=== PATIENT | female | born 1955 | race Caucasian/White ===

== ENCOUNTER 2017-03-06 12:30 | Outpatient (CLI) | payer OTHER ==
--- NOTE | 2017-03-06 13:24 | RAD ---
THERE VIEWS LUMBAR SPINE: Date: 03-06-17 Comparison: None. History: Arthritis. FINDINGS: There is a mild degree of dextroscoliosis involving the lumbar spine. Five lumbar type vertebral bodi es are present with intact pedicles on frontal imaging. There is disc space narrowing, primarily left sided, at the L2-3 and L3-4 levels. There is sclerotic endplate change and osteophyte formation invo lving the lateral aspect of the L3-4 level. Lateral imaging demonstrates disc space narrowing at the L5-S1 level with anterior and posterior oste ophyte formation. There is lower lumbar spine facet hypertrophy. No displaced fracture is seen. IMPRESSION: Degenerative change with no fracture or evidence of dislocation. POS: [facility]
--- NOTE | 2017-03-06 13:25 | RAD ---
FOUR VIEWS OF THE LEFT KNEE: Date: 03-06-17 Comparison: None. History: Arthritis. FINDINGS: No knee joint effusion, fracture, or dislocation. Mild patellofemoral joint space narrowing. IMPRESSION: No acute osseous abnormality. POS: [facility]
== END 2017-03-06 12:31 | disposition home or self-care (01) ==
LOC: RAD 12:30
PROVIDERS: ATTEND Internal Medicine
DX: Z02.71 Encounter for disability determination (principal); S12.9XXA Fracture of neck, unspecified, initial encounter; M54.5 Low back pain; G58.9 Mononeuropathy, unspecified; M19.90 Unspecified osteoarthritis, unspecified site; M47.896 Other spondylosis, lumbar region
CPT/HCPCS: 72100

== ENCOUNTER 2017-06-04 17:38 | Outpatient (CLI) | payer OTHER | END 2017-06-04 17:39 | disposition home or self-care (01) | LOC: BICRAD 17:38 | PROVIDERS: ATTEND Family Medicine | DX: M54.2 Cervicalgia (principal); M47.892 Other spondylosis, cervical region; Z98.890 Other specified postprocedural states; Z98.1 Arthrodesis status | CPT/HCPCS: 72040 ==

== ENCOUNTER 2017-08-10 14:31 | Outpatient (CLI) | payer OTHER ==
--- NOTE | 2017-08-10 15:58 | MRI ---
MRI LUMBAR SPINE WITHOUT CONTRAST 08/10/17 HISTORY: Back pain, M54.16 - lumbar radiculopathy. COMPARISON: lumbar radiograph from 03/06/17. FINDINGS: Multiple T2 hyperintense foci of both kidneys. No hydronephrosis. Hepatic cysts are present. The sple en appears mildly enlarged. No retroperitoneal adenopathy. Aortic contour is nonaneurysmal. The background marrow signal is without infiltrative process. Modic type I end plate changes L3-4. Levels are as follows: T12-L1: Mild disc desiccation. No neural foraminal or spinal canal narrowing. L1-2: There is moderate circumferential disc space height loss. Disc osteophyte complex circumferenti ally is present. Mild facet arthropathy. No significant neural foraminal or spinal canal narrowing. L2-3: Moderate degenerative disc space height loss. There is end plate invagination of disc material inferior end plate of L2 and superior end plate of L3. There is a circumferential disc osteophyte com plex. Ligamentum flavum hypertrophy. The spinal canal is narrowed to approximately 5 mm. There is mod erate bilateral neural foraminal narrowing. L3-4: Moderate degenerative disc space height loss. Circumferential disc osteophyte complex. There ar e fusions within the facet joints bilaterally. Moderate to severe left and moderate right sided neura l foraminal narrowing. Mild ligamentum flavum hypertrophy. The spinal canal measures approximately 4 mm. L4-5: Circumferential disc bulge. Moderate disc arthrosis. Moderate bilateral neural foraminal narrow ing. L5-S1: there is central, right paracentral and subforaminal and lateral recess disc osteophyte comple x on the right. Moderate to severe right and moderate left sided facet arthrosis. Moderate to severe right neural foraminal narrowing. IMPRESSION: Multilevel spondylosis with neural foraminal and spinal canal narrowing as described above. POS: [facility]
== END 2017-08-10 14:32 | disposition home or self-care (01) ==
LOC: TBSIIMAG 14:31
PROVIDERS: ATTEND Neurological Surgery
DX: M47.26 Other spondylosis with radiculopathy, lumbar region (principal); M48.061 Spinal stenosis, lumbar region without neurogenic claudication; M99.83 Other biomechanical lesions of lumbar region
CPT/HCPCS: 72148

== ENCOUNTER 2017-11-15 13:52 | Outpatient (CLI) | payer OTHER | END 2017-11-15 13:53 | disposition home or self-care (01) | LOC: BICMAMMO 13:52 | PROVIDERS: ATTEND Family Medicine | DX: Z12.31 Encounter for screening mammogram for malignant neoplasm of breast (principal) | CPT/HCPCS: 77063; 77067 ==

== ENCOUNTER 2018-11-18 10:36 | Outpatient (CLI) | payer MEDICARE, OTHER ==
--- NOTE | 2018-11-18 14:04 | MMO ---
Bilateral MAMMO Bilat Screen [facility]. CLINICAL HISTORY: Patient is 63 years old and is seen for screening. The patient has the following family history of breast cancer: paternal aunt. The patient has no personal history of cancer. VIEWS: The views performed were: bilateral craniocaudal with tomosynthesis and bilateral mediolateral oblique with tomosynthesis. FILMS COMPARED: The present examination has been compared to prior imaging studies performed at 12/28/2015 and 11/15/2017. This study has been interpreted with the assistance of computer-aided detection. MAMMOGRAM FINDINGS: There are scattered fibroglandular densities. There are no suspicious masses, suspicious calcifications, or new areas of architectural distortion. IMPRESSION: THERE IS NO MAMMOGRAPHIC EVIDENCE OF MALIGNANCY. A ROUTINE FOLLOW-UP MAMMOGRAM IN 1 YEAR IS RECOMMENDED. THE RESULTS OF THIS EXAM WERE SENT TO THE PATIENT. ACR BI-RADS Category 1 - Negative MAMMOGRAPHY NOTE: 1. A negative mammogram report should not delay a biopsy if a dominant of clinically suspicious mass is present. 2. Approximately 10% to 15% of breast cancers are not detected by mammography. 3. Adenosis and dense breasts may obscure an underlying neoplasm. Reported by: MARIAN GAMING MD Electonically Signed: [id number]
== END 2018-11-18 10:37 | disposition home or self-care (01) ==
LOC: BICMAMMO 10:36
PROVIDERS: ATTEND Family Medicine
DX: Z12.31 Encounter for screening mammogram for malignant neoplasm of breast (principal); Z80.3 Family history of malignant neoplasm of breast
CPT/HCPCS: 77063; 77067

== ENCOUNTER 2019-03-13 07:43 | Outpatient (CLI) | payer MEDICARE ==
--- NOTE | 2019-03-13 10:16 | MRI ---
MRI CERVICAL SPINE WITHOUT CONTRAST: INDICATIONS: Neck pain and bilateral arm weakness. COMPARISON: No recent exams available. CORRELATION: MRI cervical spine from 11/04/2010. CT cervical spine from 12/07/2015. FINDINGS: The 2016 CT revealed prompt degenerative disk changes in the mid cervical spine at the C3-C4, C4-C5 a nd C5-C6 levels with prominent posterior spondylosis and cord impingement. Postoperative changes are now apparent at the C4-C5 and C5-C6 levels. There appears to be an anterior plate and screws present at these levels, which produces significant artifact on MRI. At C2-C3, minimal spondylosis without central canal or foraminal stenosis. At C3-C4, posterior disk bulge and spondylosis efface the anterior subarachnoid space. There is sligh t posterior listhesis. No significant cord impingement or compression. There is evidence of foraminal narrowing bilaterally due to facet and uncinate hypertrophy. The postoperative changes at C4-C5 are difficult to evaluate due to artifact. At C5 there appears to be posterior spondylosis impinging on the anterior cord. This is suboptimally evaluated due to artifact. At C5-C6 and C6-C7 posterior spondylosis efface the anterior subarachnoid space and appear to abut th e cord. Mild foraminal encroachment at C4-C5 on the left. The foramina at C5-C6 appear patent. C7-T1 appears unremarkable. Review of the cord reveals abnormal T2 signal within the cord at the C4 level. This is concerning for myelomalacia. There is mild thinning of the cord at this level, which would also correspond to volum e loss due to myelomalacia. IMPRESSION: 1. Postoperative changes with anterior plate and screws at C4-C5 and C5-C6 produce significant MRI ar tifact. Recommend additional evaluation with CT cervical spine, which can better assess the bony spon dylosis and delineate hardware. 2. There appears to be spondylosis impinging on the cord at the C5 and C5-C6 regions. 3. There is abnormal cord signal with thinning of the cord at C4, consistent with myelomalacia within the cord at this level. POS: [facility]
== END 2019-03-13 07:44 | disposition home or self-care (01) ==
LOC: TBSIIMAG 07:43
PROVIDERS: ATTEND Physical Medicine & Rehabilitation
DX: M54.2 Cervicalgia (principal); R29.898 Other symptoms and signs involving the musculoskeletal system; G95.9 Disease of spinal cord, unspecified; Z98.890 Other specified postprocedural states
CPT/HCPCS: 72141

== ENCOUNTER 2019-06-16 09:05 | Outpatient (CLI) | payer MEDICARE ==
--- NOTE | 2019-06-16 10:30 | CT ---
CT CERVICAL SPINE: DATE: 06/16/2019. PROVIDED CLINICAL HISTORY: Numbness in arms and neck pain. FINDINGS: Comparison is made with the CT examination dated 12/07/2015. There is slight retrolisthesis of C3 on C4. Cervical alignment appears otherwise normal. Vertebral body heights appear preserved. No evidence for fracture or other acute osseous abnormality. Postope rative changes of ACDF are noted from C4 through C6 with associated facet joint hardware bilaterally at C4-5 and C5-6. There is no evidence for hardware loosening or migration. Ankylosis at the interv ening disk spaces and facet joints it was noted. There is disk space narrowing and end plate degener ative change at C3-4 and C6-7 and C7-T1. There is no evidence for prevertebral soft tissue swelling. The visualized lung apices appear clear. Carotid calcification is demonstrated. At C2-3, there is a right paracentral disk protrusion which approximates the ventral spinal cord. Th ere is no significant bony foraminal narrowing apparent. There is bilateral facet arthritis. At C3-4, there is a broad-based disk-osteophyte complex and bilateral uncinate process hypertrophy. Bilateral facet arthritis. Effacement of the ventral spinal canal without definite evidence for cord contact or deformity. There is mild bilateral foraminal narrowing. At C4-5, osteophyte formation is noted along the posterior margin of the C5 vertebral body without si gnificant central canal or foraminal narrowing apparent. At C5-6, Osteophyte formation is noted along the posterior margin of the C6 vertebral body effacing t he ventral aspects of the spinal canal. There is no significant bony foraminal narrowing apparent. At C6-7, there is a broad-based disk-osteophyte complex and bilateral uncinate process hypertrophy. There is bilateral foraminal narrowing, greater than right due to a focal osteophyte in the right for aminal region. At C7-T1, there is no significant central canal or foraminal narrowing apparent. IMPRESSION: Postoperative and degenerative changes involving the cervical spine as described above. POS: [facility]
== END 2019-06-16 09:06 | disposition home or self-care (01) ==
LOC: TBSIIMAG 09:05
PROVIDERS: ATTEND Neurological Surgery
DX: M47.22 Other spondylosis with radiculopathy, cervical region (principal); Z98.890 Other specified postprocedural states
CPT/HCPCS: 72125

== ENCOUNTER 2019-07-15 10:36 | Outpatient (CLI) | payer MEDICARE ==
--- NOTE | 2019-07-15 11:41 | MRI ---
MRI LUMBAR SPINE NONCONTRAST: HISTORY: Spondylosis of the lumbar region, without myelopathy. COMPARISON: 08/10/2017. FINDINGS: Stable mild heterogeneity involving the L2-L3 disc space and L5-S1 disc space compatible with type I and type II Modic changes. Multilevel Schmorl's nodes are redemonstrated. Lumbar spine vertebral body height is maintained. There is no fracture. No significant STIR hyperintensity to suggest ligamentous injury or vertebral body edema. Redemonstration of T2 hyperintensities involving the left or right renal cortex, compatible with a co rtical cyst. Conus medullaris terminates at the mid L1 level. Spondylolisthesis: L2-L3: 2.6 mm of retrolisthesis. L3-L4: 3 mm of retrolisthesis. T12-L1:Adequate disc hydration. No significant central canal stenosis or significant neural foraminal narrowing. L1-L2:Desiccation with moderate loss of disc space height. Broad-based disc bulge abuts the thecal sa c. Mild central canal stenosis. Right neural foramen is patent. Mild to moderate left neural foraminal narrowing. L2-L3:Moderate loss of disc space height. Broad-based disc bulge results in moderate central canal st enosis. Mild to moderate right neural foraminal narrowing. Moderate to severe left neural foraminal narrowing. L3-L4:Severe loss of disc space height. Broad-based disc bulge, minimal ligament flavum thickening an d mild to moderate facet hypertrophy result in moderate central canal stenosis. Moderate severe bilateral neural foraminal narrowing. L4-L5:Mild loss of disc space height. Broad-based disc bulge results in minimal flattening of the the tim sac. No significant central canal stenosis. Moderate bilateral neural foraminal narrowing. L5-S1:Disc desiccation with mild to moderate loss of disc space height. Broad-based disc bulge abuts the thecal sac. There is no significant central canal stenosis. Disc material does encroach upon the right subarticular zone and make contact with the traversing right S1 nerve root. No significant obscuration. Left subarticular zone is patent. Moderate to severe right and moderate left neural foraminal narrowing. IMPRESSION: Multilevel degenerative changes of the lumbar spine as described above. Transcribed Date/Time: 07/15/2019 12:58 PM
== END 2019-07-15 10:37 | disposition home or self-care (01) ==
LOC: TBSIIMAG 10:36
PROVIDERS: ATTEND Nurse Practitioner Family
DX: M47.26 Other spondylosis with radiculopathy, lumbar region (principal)
CPT/HCPCS: 72148

== ENCOUNTER 2019-12-19 14:42 | Outpatient (CLI) | payer MEDICARE ==
--- NOTE | 2019-12-19 15:13 | MMO ---
Bilateral MAMMO Bilat Screen [facility]. CLINICAL HISTORY: Patient is 64 years old and is seen for screening. The patient has the following family history of breast cancer: paternal aunt. The patient has no personal history of cancer. VIEWS: The views performed were: bilateral craniocaudal with tomosynthesis and bilateral mediolateral oblique with tomosynthesis. FILMS COMPARED: The present examination has been compared to prior imaging studies performed at [facility] on 03/10/2014, 12/28/2015, 11/15/2017 and 11/18/2018. This study has been interpreted with the assistance of computer-aided detection. MAMMOGRAM FINDINGS: There are scattered fibroglandular densities. There is an area of architectural distortion seen in the MLO view only seen in the middle upper region of the right breast. In the left breast, there are no suspicious masses, calcifications or areas of architectural distortion. IMPRESSION: AREA OF ARCHITECTURAL DISTORTION IN THE RIGHT BREAST REQUIRES ADDITIONAL EVALUATION. RECOMMEND DIAGNOSTIC MAMMOGRAM. ULTRASOUND MAY ALSO PROVE USEFUL AT RECALL. THE RESULTS OF THIS EXAM WERE SENT TO THE PATIENT. ACR BI-RADS Category 0 - Incomplete: Need additional imaging evaluation. [facility] will notify the patient of the need for additional imaging services. MAMMOGRAPHY NOTE: 1. A negative mammogram report should not delay a biopsy if a dominant of clinically suspicious mass is present. 2. Approximately 10% to 15% of breast cancers are not detected by mammography. 3. Adenosis and dense breasts may obscure an underlying neoplasm. Reported by: AI HOWARD MD Electonically Signed: [id number]
--- NOTE | 2019-12-19 16:09 | BD ---
Exam: DEXA Bone Density 12/19/19 HISTORY: Postmenopausal screening for osteoporosis. FINDINGS: Lumbar Spine: BMD (g/cm2) T-SCORE Z-SCORE L1 0.848 -1.3 0.4 L2 1.019 -0.2 1.7 L3 0.985 -0.9 1.0 L4 0.867 -1.8 0.2 L1-L4 0.925 -1.1 0.8 Femoral Neck: 0.686 -1.5 0.1 Total Femur: 0.879 -0.5 0.8 The ten year fracture risk for a major osteoporotic fracture is 12% and for a hip fracture is 1.3%. Impression: Osteopenia. POS: [facility]
== END 2019-12-19 14:43 | disposition home or self-care (01) ==
LOC: BICMAMMO 14:42
PROVIDERS: ATTEND Family Medicine
DX: Z12.31 Encounter for screening mammogram for malignant neoplasm of breast (principal); Z13.820 Encounter for screening for osteoporosis; M85.89 Other specified disorders of bone density and structure, multiple sites; N64.89 Other specified disorders of breast; Z78.0 Asymptomatic menopausal state; Z80.3 Family history of malignant neoplasm of breast
CPT/HCPCS: 77063; 77067; 77080

== ENCOUNTER 2019-12-24 12:42 | Outpatient (CLI) | payer MEDICARE ==
--- NOTE | 2019-12-24 13:13 | MMO ---
Right Breast MAMMO Unilat Diag [facility]DI [facility]CATH[facility]. CLINICAL HISTORY: Patient is 64 years old and is seen for diagnostic exam. The patient has the following family history of breast cancer: paternal aunt. The patient has no personal history of cancer. VIEWS: The views performed were: right mediolateral oblique spot compression with tomosynthesis and right mediolateral with tomosynthesis. FILMS COMPARED: The present examination has been compared to prior imaging studies performed at [facility] on 11/15/2017, 11/18/2018, 12/19/2019 and 12/24/2019. This study has been interpreted with the assistance of computer-aided detection. MAMMOGRAM FINDINGS: There are scattered fibroglandular densities. No discrete mass is evident in the region of screening concern. No abnormality on the CC view. Ultrasound of this area is normal. There are no suspicious masses, suspicious calcifications, or new areas of architectural distortion. IMPRESSION: THERE IS NO MAMMOGRAPHIC EVIDENCE OF MALIGNANCY. A ROUTINE FOLLOW-UP MAMMOGRAM IN 1 YEAR IS RECOMMENDED. THE RESULTS OF THIS EXAM WERE SENT TO THE PATIENT. ACR BI-RADS Category 2 - Benign finding MAMMOGRAPHY NOTE: 1. A negative mammogram report should not delay a biopsy if a dominant of clinically suspicious mass is present. 2. Approximately 10% to 15% of breast cancers are not detected by mammography. 3. Adenosis and dense breasts may obscure an underlying neoplasm. Reported by: AI HOWARD MD Electonically Signed: [id number]
--- NOTE | 2019-12-24 13:19 | ULT ---
EXAM: US Breast Limited Rt PROVIDED CLINICAL HISTORY: Abnormal screening mammogram COMPARISON: Screening mammogram 12/19/2019 FINDINGS: Limited sonographic interrogation was performed of the right breast in the region of mammographic con cern. The sonographic appearance of the breast tissue in this region is normal. IMPRESSION: No sonographic abnormality is evident. Return to screening mammography. BI-RADS 2 -- benign findings
== END 2019-12-24 12:43 | disposition home or self-care (01) ==
LOC: BICMAMMO 12:42
PROVIDERS: ATTEND Family Medicine
DX: Q83.9 Congenital malformation of breast, unspecified (principal)
CPT/HCPCS: 76642; 77065; G0279

== ENCOUNTER 2020-05-10 12:42 | Outpatient (CLI) | payer MEDICARE | END 2020-05-10 12:43 | disposition home or self-care (01) | LOC: TBSIIMAG 12:42 | PROVIDERS: ATTEND Internal Medicine Rheumatology | DX: M12.811 Other specific arthropathies, not elsewhere classified, right shoulder (principal); M25.511 Pain in right shoulder; S46.911A Strain of unspecified muscle, fascia and tendon at shoulder and upper arm level, right arm, initial encounter ==

== ENCOUNTER 2020-12-16 11:30 | Inpatient (IN) | payer MEDICARE ==
[2021-01-21 12:48] VITALS: BMI 27.3
[2021-01-25] MEDS ORDERED: Tranexamic Acid 1,000 MG/10 ML VIAL ONE (06:55)
[2021-01-25] MEDS ORDERED: ceFAZolin 2 GM/DEX 5% 100 ML BAG ONE (06:56)
[2021-01-25] MEDS ORDERED: Vancomycin 1 GM/200 ML BAG ONE (06:56)
[2021-01-25] MEDS ORDERED: Sodium Chloride 0.9% 100 ML ONE (06:56)
[2021-01-25] MEDS ORDERED: Glycopyrrolate 0.2 MG/ML 5 ML SYRINGE ONE (07:14)
[2021-01-25] MEDS ORDERED: ePHEDrine 50 MG/ML VIAL ONE (07:14)
[2021-01-25] MEDS ORDERED: Dexamethasone 20 MG/5 ML VIAL ONE (07:14)
[2021-01-25] MEDS ORDERED: PROPOFOL 200 MG/20 ML VIAL ONE (07:14)
[2021-01-25] MEDS ORDERED: Ondansetron PF 4 MG/2 ML Vial ONE (07:14)
[2021-01-25] MEDS ORDERED: Rocuronium Bromide 10 MG/ML (10ML VIAL) ONE (07:14)
[2021-01-25] MEDS ORDERED: Lidocaine 1.5% w/Epi 1:200K 30 ML VIAL (Epid Use) ONE (07:14)
[2021-01-25] MEDS ORDERED: Fentanyl 100 MCG/2 ML VIAL ONE ×3 (07:14→09:13)
[2021-01-25] MEDS ORDERED: Ropivacaine 0.2% HCl/PF 20 ML ONE (07:28)
[2021-01-25] MEDS ORDERED: HYDROcodone/Acetaminophen 10/325 mg Tablet PO PRN (07:28)
[2021-01-25] MEDS ORDERED: diphenhydrAMINE 50 MG/ML VIAL IVP PRN (07:30)
[2021-01-25] MEDS ORDERED: diphenhydrAMINE 25 MG CAP PO PRN ×2 (07:30→11:00)
[2021-01-25] MEDS ORDERED: Promethazine HCl 25 MG SUPP PR PRN (07:30)
[2021-01-25] MEDS ORDERED: Naloxone HCl 0.4 mg/ml Vial IVP PRN (07:30)
[2021-01-25] MEDS ORDERED: traMADol HCl 50 MG TAB PO PRN ×2 (07:30)
[2021-01-25] MEDS ORDERED: Zolpidem Tartrate 5 MG TAB PO PRN (07:30)
[2021-01-25] MEDS ORDERED: Naloxone HCl 0.4 mg/ml Vial IV PRN (07:30)
[2021-01-25] MEDS ORDERED: Promethazine HCl 25 MG/ML VIAL IM PRN ×2 (07:30→11:00)
[2021-01-25] MEDS ORDERED: Hydrocerin (Eucerin) Cream 120 gm Jar TOP PRN (07:30)
[2021-01-25] MEDS ORDERED: diphenhydrAMINE 50 MG/ML VIAL IM PRN (07:30)
[2021-01-25] MEDS ORDERED: Ondansetron PF 4 MG/2 ML Vial IVP PRN (07:30)
[2021-01-25] MEDS ORDERED: Bupivacaine 0.25% 10 ML VIAL EPIDURAL PRN (07:30)
[2021-01-25] MEDS ORDERED: Bupivacaine 0.25% HCL 30 ML VIAL ONE (09:26)
[2021-01-25] MEDS ORDERED: Acetaminophen 325 MG TAB PO PRN (11:00)
[2021-01-25] MEDS: Ketorolac Tromethamine 30 MG/ML VIAL IVP SCH ×2 (11:42→18:32)
[2021-01-25] MEDS ORDERED: Aspirin 81 mg Enteric Coated Tablet PO SCH (11:45)
[2021-01-25] MEDS: Sodium Chloride 0.9% 1,000 ML IV SCH ×2 (12:12→20:46)
[2021-01-25] MEDS: HYDROcodone/Acetaminophen 10/325 mg Tablet PO PRN (16:36)
[2021-01-25] MEDS: ceFAZolin Sodium/D5W 2 GM in Premix Bag 1 BAG IVPB SCH (16:37)
[2021-01-25] MEDS ORDERED: Vancomycin 1 GM in Premix Bag 1 BAG IVPB SCH (20:00)
[2021-01-25] MEDS: Mupirocin 2% Ointment 22 GM Tube TOP SCH (20:33)
[2021-01-25] MEDS: Aspirin 81 mg Enteric Coated Tablet PO SCH (20:33)
[2021-01-25] MEDS: Zolpidem Tartrate 5 MG TAB PO PRN (22:14)
[2021-01-26] MEDS: ceFAZolin Sodium/D5W 2 GM in Premix Bag 1 BAG IVPB SCH (00:19)
[2021-01-26] MEDS: HYDROcodone/Acetaminophen 10/325 mg Tablet PO PRN ×4 (00:19→17:20)
[2021-01-26] MEDS: Ketorolac Tromethamine 30 MG/ML VIAL IVP SCH ×5 (00:19→23:53)
[2021-01-26] MEDS: Fentanyl 5 mcg/Bup 0.075% Cadd 100 ML EPIDURAL SCH ×2 (01:11→18:39)
[2021-01-26 04:42] LABS: Hemoglobin 9.2 g/dL (12.0-16.0); Mean Corpuscular HGB CONC 32.5 g/dL (32.0-36.0); Mean Corpuscular Volume 86.2 fL (78.0-98.0); Mean Platelet Volume 7.4 fL (7.4-10.4); Platelet Count 204 thou/uL (130-400); RBC Distribution Width 16.7 % (11.5-14.5); Red Blood Cell (RBC) Count 3.28 mill/uL (4.20-5.40); White Blood Cell (WBC) Count 10.8 thou/uL (4.8-10.8)
[2021-01-26] MEDS: Sodium Chloride 0.9% 1,000 ML IV SCH ×2 (07:27→18:53)
[2021-01-26] MEDS: Aspirin 81 mg Enteric Coated Tablet PO SCH ×2 (08:47→20:24)
[2021-01-26] MEDS: Mupirocin 2% Ointment 22 GM Tube TOP SCH ×2 (08:47→20:23)
[2021-01-26] MEDS: Ferrous Gluconate 324 MG TAB PO SCH ×2 (08:47→18:26)
[2021-01-26] MEDS: Senokot S 8.6-50 MG TAB PO SCH ×2 (08:47→20:23)
[2021-01-26] MEDS: Multivitamin W/ Minerals 1 TAB PO SCH (08:47)
[2021-01-26] MEDS: Ondansetron PF 4 MG/2 ML Vial IVP PRN (20:23)
[2021-01-26] MEDS: Zolpidem Tartrate 5 MG TAB PO PRN (22:05)
[2021-01-27] MEDS: Sodium Chloride 0.9% 1,000 ML IV SCH (02:56)
[2021-01-27 05:53] LABS: Hemoglobin 9.2 g/dL (12.0-16.0); Mean Corpuscular Hemoglobin 28.1 pg (27.0-31.0); Mean Corpuscular Volume 87.8 fL (78.0-98.0); Mean Platelet Volume 7.2 fL (7.4-10.4); Platelet Count 193 thou/uL (130-400); RBC Distribution Width 16.7 % (11.5-14.5); Red Blood Cell (RBC) Count 3.29 mill/uL (4.20-5.40); White Blood Cell (WBC) Count 7.8 thou/uL (4.8-10.8)
[2021-01-27] MEDS: Ketorolac Tromethamine 30 MG/ML VIAL IVP SCH (05:54)
[2021-01-27] MEDS: HYDROcodone/Acetaminophen 10/325 mg Tablet PO PRN ×2 (08:12→12:20)
[2021-01-27] MEDS: Senokot S 8.6-50 MG TAB PO SCH (08:13)
[2021-01-27] MEDS: Ferrous Gluconate 324 MG TAB PO SCH (08:14)
[2021-01-27] MEDS: Multivitamin W/ Minerals 1 TAB PO SCH (08:14)
[2021-01-27] MEDS: Aspirin 81 mg Enteric Coated Tablet PO SCH (08:14)
[2021-01-27] MEDS: Ondansetron PF 4 MG/2 ML Vial IVP PRN (10:03)
[2021-01-27] MEDS: Mupirocin 2% Ointment 22 GM Tube TOP SCH (10:03)
[2021-01-27 11:56] VITALS: BP 157/80; TEMP 98.5
== END 2021-01-27 14:19 | disposition home or self-care (01) | DRG 470 ==
LOC: EDSTATUS 01-18 11:30 → SURG A 01-25 05:39 → SURG B 01-25 10:40
PROVIDERS: ADMIT Orthopaedic Surgery; ATTEND Orthopaedic Surgery
PROC: 0SR904Z Replacement of Right Hip Joint with Ceramic on Polyethylene Synthetic Substitute, Open Approach (ICD-10-PCS; principal; 2021-01-25)
DX: M16.11 Unilateral primary osteoarthritis, right hip (principal); G89.29 Other chronic pain; M54.9 Dorsalgia, unspecified; F32.A Depression, unspecified; F41.9 Anxiety disorder, unspecified; Z79.899 Other long term (current) drug therapy; Z88.1 Allergy status to other antibiotic agents
CPT/HCPCS: 36415; 72170; 85027; 86850; 86900; 86901; C1776; J1100; J1885; J2001; J2405; J2704; J2795; J3010; J3370; J3490; J7050; S0020

== ENCOUNTER 2020-12-20 09:35 | Outpatient (CLI) | payer MEDICARE | END 2020-12-20 09:36 | disposition home or self-care (01) | LOC: BICMAMMO 09:35 | PROVIDERS: ATTEND Family Medicine | DX: Z12.31 Encounter for screening mammogram for malignant neoplasm of breast (principal); Z80.3 Family history of malignant neoplasm of breast | CPT/HCPCS: 77063; 77067 ==

== ENCOUNTER 2021-01-20 10:54 | Outpatient (CLI) | payer MEDICARE ==
[2021-01-20 12:27] LABS: #Basophils 0.1 10x3/uL (0.0-0.2); #Eosinphils 0.1 10x3/uL (0.0-0.5); #Monocytes 0.5 10x3/uL (0.0-1.1); #Neutrophils 1.7 10x3/uL (1.5-8.4); %Basophils 2.5 % (0.0-2.0); %Eosinophils 2.3 % (0.0-6.0); %Lymphocytes 39.4 % (18.0-47.0); %Monocytes 13.2 % (0.0-10.0); %Neutrophils 42.3 % (40.0-75.0); Hemoglobin 10.1 g/dL (12.0-15.5); Mean Corpuscular HGB CONC 29.5 g/dL (32.0-36.0); Mean Corpuscular Hemoglobin 25.9 pg (27.0-33.0); Mean Corpuscular Volume 87.7 fl (81.6-98.3); Mean Platelet Volume 9.8 fl (7.4-10.4); Platelet Count 210 10x3/uL (150-450); RBC Distribution Width 16.8 % (11.5-14.5); White Blood Cell (WBC) Count 3.9 10x3/uL (3.5-10.5)
[2021-01-20 12:44] LABS: Prothrombin Time 10.7 sec (9.5-12.1)
[2021-01-20 12:52] LABS: Platelet Morphology Comment Appears Adequate; RBC Morphology Normal
[2021-01-20 13:02] LABS: Anion Gap 12 mmol/L (10-20); BUN (Urea Nitrogen) 9 mg/dL (9.8-20.1); Calc. Creatinine Clearance 0 mL/min (70-130); Calcium 9.5 mg/dL (7.8-10.44); Carbon Dioxide 29 mmol/L (23-31); Chloride 103 mmol/L (98-107); Glucose 91 mg/dL (80-115); Potassium 4.3 mmol/L (3.5-5.1); Sodium 140 mmol/L (136-145)
[2021-01-21 11:56] LABS: SARS-CoV-2 PCR by NAA Not Detected (NotDetected)
== END 2021-01-20 10:55 | disposition home or self-care (01) ==
LOC: LABBT 10:54
PROVIDERS: ATTEND Orthopaedic Surgery
DX: Z01.818 Encounter for other preprocedural examination (principal); M16.11 Unilateral primary osteoarthritis, right hip; Z20.822 Contact with and (suspected) exposure to COVID-19
CPT/HCPCS: 80048; 85025; 85610; 87081; 93005; U0003; U0005; 93010

== ENCOUNTER 2021-12-21 10:31 | Outpatient (CLI) | payer MEDICARE | END 2021-12-21 10:32 | disposition home or self-care (01) | LOC: BICMAMMO 10:31 | PROVIDERS: ATTEND Family Medicine | DX: Z12.31 Encounter for screening mammogram for malignant neoplasm of breast (principal); Z80.3 Family history of malignant neoplasm of breast | CPT/HCPCS: 77063; 77067 ==

== ENCOUNTER 2022-03-31 14:41 | Outpatient (CLI) | payer MEDICARE | END 2022-03-31 14:42 | disposition home or self-care (01) | LOC: TBSIIMAG 14:41 | PROVIDERS: ATTEND Orthopaedic Surgery | DX: M25.552 Pain in left hip (principal); G89.29 Other chronic pain; M76.02 Gluteal tendinitis, left hip; Z98.890 Other specified postprocedural states ==

== ENCOUNTER 2022-06-30 08:36 | Outpatient (CLI) | payer MEDICARE | END 2022-06-30 08:37 | disposition home or self-care (01) | LOC: TBSIIMAG 08:36 | PROVIDERS: ATTEND Orthopaedic Surgery | DX: M23.92 Unspecified internal derangement of left knee (principal); S83.242A Other tear of medial meniscus, current injury, left knee, initial encounter; M71.22 Synovial cyst of popliteal space [Baker], left knee; M25.462 Effusion, left knee; M94.8X6 Other specified disorders of cartilage, lower leg; S83.282A Other tear of lateral meniscus, current injury, left knee, initial encounter ==

== ENCOUNTER 2022-08-30 14:51 | Outpatient (CLI) | payer MEDICARE | END 2022-08-30 14:52 | disposition home or self-care (01) | LOC: BICMAMMO 14:51 | PROVIDERS: ATTEND Internal Medicine Rheumatology | DX: M85.852 Other specified disorders of bone density and structure, left thigh (principal); M85.88 Other specified disorders of bone density and structure, other site; Z78.0 Asymptomatic menopausal state | CPT/HCPCS: 77080 ==

== ENCOUNTER 2023-04-30 13:43 | Outpatient (CLI) | payer MEDICARE | END 2023-04-30 13:44 | disposition home or self-care (01) | LOC: BICMAMMO 13:43 | PROVIDERS: ATTEND Family Medicine | DX: Z12.31 Encounter for screening mammogram for malignant neoplasm of breast (principal); N63.10 Unspecified lump in the right breast, unspecified quadrant; Z80.3 Family history of malignant neoplasm of breast | CPT/HCPCS: 77063; 77067 ==

== ENCOUNTER 2024-09-25 12:50 | Outpatient (CLI) | payer MEDICARE | END 2024-09-25 12:51 | disposition home or self-care (01) | LOC: BICMAMMO 12:50 | PROVIDERS: ATTEND Family Medicine | DX: Z12.31 Encounter for screening mammogram for malignant neoplasm of breast (principal); Z13.820 Encounter for screening for osteoporosis; N95.1 Menopausal and female climacteric states; M85.89 Other specified disorders of bone density and structure, multiple sites; Z80.3 Family history of malignant neoplasm of breast | CPT/HCPCS: 77063; 77067; 77080 ==